=== PATIENT | male | born 1965 | race Caucasian/White ===

== ENCOUNTER 2025-07-26 19:05 | Emergency (ER) | payer OTHER, SELFPAY ==
[2025-07-26 19:08] VITALS: BP 152/88
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
== END 2025-07-26 20:29 | disposition home or self-care (01) ==
LOC: EMR 19:05
PROVIDERS: EMERGENCY PHYSICIAN Student in an Organized Health Care Education/Training Program
DX: S01.81XA Laceration without foreign body of other part of head, initial encounter (principal); W22.8XXA Striking against or struck by other objects, initial encounter; I10 Essential (primary) hypertension
CPT/HCPCS: 12013; 99282